=== PATIENT | male | born 1980 | race Caucasian/White ===

== ENCOUNTER 2024-04-02 09:18 | Emergency (ER) | payer OTHER ==
[~2024-04-02] VITALS: Ht 180.3 cm; Wt 83.9 kg
[2024-04-02] MEDS ORDERED: IBUP-1957 PO (09:49)
[2024-04-02 10:01] VITALS: BP 130/74; TEMP 98; O2SAT 99
== END 2024-04-02 10:01 | disposition home or self-care (01) ==
LOC: ER 09:24
DX: S20.219A Contusion of unspecified front wall of thorax, initial encounter (principal); V89.2XXA Person injured in unspecified motor-vehicle accident, traffic, initial encounter; Y93.89 Activity, other specified; Y92.410 Unspecified street and highway as the place of occurrence of the external cause; Y99.8 Other external cause status
CPT/HCPCS: 71045-TC